=== PATIENT | male | born 1995 | race Caucasian/White ===

== ENCOUNTER → 2021-04-28 | Outpatient (CLI) | payer OTHER ==
--- NOTE | 2021-04-28 10:53 | KCIC ---
Study: XR CHEST 2V Indication: Left upper chest pain. Comparison: None recently. Findings: The cardiomediastinal silhouette and anisha are within normal limits. No localized airspace opacity, pl eural effusion or pneumothorax. Grossly intact osseous structures. Impression: No acute radiographic abnormality of the chest. Electronically signed by: GABRIEL OLIVO MD (04/28/2021 10:51 AM) [facility] [place]
--- NOTE | 2021-04-28 10:54 | KCIC ---
Study: XR SHOULDER_LEFT 2+ VIEWS Indication: Left shoulder pain. Comparison: None. Findings: Alignment is anatomic. No acute or subacute fracture. Normal acromiohumeral interval. No early arthro sis. Impression: Unremarkable radiographs of the left shoulder. Electronically signed by: GABRIEL OLIVO MD (04/28/2021 10:51 AM) [facility]
== END ==
LOC: KCIC 09:12
PROVIDERS: ATTEND Nurse Practitioner Family
DX: R07.89 Other chest pain (principal); M25.512 Pain in left shoulder
CPT/HCPCS: 71046; 73030